=== PATIENT | male | born 1985 ===

== ENCOUNTER 2019-02-08 05:41 | Day surgery (SDC) | payer BC ==
[~2019-02-08 05:41] MED LIST: Buffered Lidocaine 1% SYRIN* 1 ML/SYRINGE INTRADERM ONE
[2019-02-08] MEDS ORDERED: Lactated Ringers 1000 ML Bag* 1,000 ML IV SCH (06:00)
[2019-02-08] MEDS ORDERED: Famotidine IV* 10 MG/ML 2 ML (20 mg) IV ONE (06:00)
[2019-02-08] MEDS ORDERED: Buffered Lidocaine 1% SYRIN* 1 ML/SYRINGE INTRADERM ONE (06:34)
[2019-02-08] MEDS ORDERED: Famotidine IV* 10 MG/ML 2 ML (20 mg) ONE (06:35)
[2019-02-08] MEDS ORDERED: ceFAZolin 2 GM in NS PREMIX(*) 2 GM/100 ML BAG IVPB ONE (06:35)
[2019-02-08] MEDS ORDERED: Lidocaine 2% PF * 5 ML VIAL ONE (07:07)
[2019-02-08] MEDS ORDERED: Ondansetron INJ* 2 MG/ML VIAL ONE (07:07)
[2019-02-08] MEDS ORDERED: Midazolam* 1 MG/ML 5 ML VIAL (5 MG) ONE (07:07)
[2019-02-08] MEDS ORDERED: Ketorolac INJ* 30 MG/ML 1 ML VIAL ONE (07:07)
[2019-02-08] MEDS ORDERED: Propofol* 10 MG/ML 20 ML BTL ONE (07:07)
[2019-02-08] MEDS ORDERED: fentaNYL* 50 MCG/ML 5 ML VIAL (250 MCG VIAL) ONE ×2 (07:07→08:46)
[2019-02-08] MEDS ORDERED: Dexamethasone IV* 4 MG/ML 1 ML (4 MG) ONE (07:07)
[2019-02-08] MEDS ORDERED: Ropivacaine* 2 MG/ML 20 ML VIAL (0.2%) ONE (07:14)
[2019-02-08] MEDS ORDERED: Lidocaine 1% MPF wEPI 200,000* 30 ML SDV ONE (07:14)
[2019-02-08] MEDS ORDERED: Naloxone* 0.4 MG/ML 1 ML VIAL IV PRN (09:08)
[2019-02-08] MEDS ORDERED: Ondansetron INJ* 2 MG/ML VIAL IV PRN (09:08)
[2019-02-08] MEDS ORDERED: fentaNYL* 50 MCG/ML 2 ML VIAL (100 MCG VIAL) IV PRN (09:08)
[2019-02-08] MEDS ORDERED: oxyCODONE/Acetamin 5/325 MG* TAB PO PRN (09:08)
[2019-02-08] MEDS ORDERED: HYDROmorphone INJ1* 1 MG/ML SYRINGE IV PRN (09:08)
[2019-02-08] MEDS ORDERED: oxyCODONE/Acetamin 5/325 MG* TAB ONE (10:34)
[2019-02-08 11:09] VITALS: BP 131/90
--- NOTE | 2019-02-09 04:03 | OP ---
DATE OF OPERATION: 02/08/19 [facility] DATE OF : 83 ATTENDING SURGEON: Shelly Jon MD MANAGER LPN: OLU Ring. An market research assistant was needed for the entirety of the case to help with positioning, retraction, and utilized throughout all portions of the case. ANESTHESIOLOGIST: Dr. Caraballo. ANESTHESIA: General. 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 POST-OP DIAGNOSIS: Right knee chronic grade 3 rupture with lateral meniscus root tearing. OPERATIVE PROCEDURE: 1. Right knee arthroscopy with ACL reconstruction using BTB autograft. 2. Partial lateral meniscectomy. COMPLICATIONS: None. ESTIMATED BLOOD LOSS: Minimal. TOURNIQUET TIME: 21 minutes 250 mmHg. INDICATIONS: Willis Magdaleno is a 33-year-old male who presents with chronic ACL rupture that happened in 2013. He has had persistent instability. He states that he has failed conservative management. He was unable to get it taken care of several years ago due to training, and now he is interested as he is having persistent instability. Risks and benefits were discussed at length included, but not limited to bleeding; infection; damage to nerves, vessels, surrounding structures; wound nonhealing; persistent pain; need for surgery; scaring; stiffness; incomplete relief of symptoms; and risks of anesthesia. DESCRIPTION OF PROCEDURE: The patient was greeted in the preoperative area by the attending surgeon. Correct extremity was marked. Consent was confirmed. The patient was brought back to the operating suite, where he was placed in the supine position on the operating room table. He then underwent general anesthesia with LMA intubation, after which he was appropriately positioned in the bed. A lateral post was positioned and unsterile tourniquet was placed high on the proximal thigh. A navarro bag was placed to knee at 90 degrees. The right leg was then prepped and draped in the usual sterile fashion beginning with chlorhexidine soap, scrub, and alcohol wipe and a final prep with ChloraPrep. After appropriate surgical pause indicating site, side, procedure, administration of antibiotics, the knee was intra-articularly injected with 1% lidocaine with epi. The limb was exsanguinated and tourniquet was inflated at 250 mmHg after which a midline incision over the patellar tendon was then made using 15 blade. Soft tissues were carefully dissected to expose the peritenon, which was identified and layers were preserved for later closure. This was then incised with a deep 15 blade. Soft tissues were carefully dissected to expose the patellar tendon, which was found to be about 36 mm of width. The center 10 mm were then harvested using a 10 blade. The dissection was taken proximally and the bone blocks were harvested to allow for about a 9 x 23 mm bone block proximally and then distally it was about 10 x 30 mm. The graft was then prepared in the back table by the market research assistant while the surgeon continued to close the tendon with 0-Vicryl in an interrupted fashion. The tourniquet was deflated for a total time of 21 minutes. The lateral portal was then made through the capsule. The scope was then brought to the joint. The joint was examined. With the scope positioned in the joint, the anteromedial portal was made in an outside-in fashion using an 18-gauge needle for localization. Shaver was used to debride back the abundant bursa that was present. There was evidence of grade-3 rupture of the ACL. The patellofemoral joint had grade 0 to 1 changes. The medial and lateral gutters were intact. The medial meniscus head was intact. There were grade 0 to 1 changes in the medial femoral condyle and medial plateau. Lateral femoral condyle and lateral plateau had grade 0 to 1 changes with more softening of lateral plateau. There was evidence of previous root tear and it was concerned that the root was detached, however, it still appeared to be scared to the tibial plateau. The remaining stump that was identified and any unable flapping tissue was then debrided back using viral and the biters. After which, attention was directed to the notch. The ACL footprint was then debrided using the shaver and biters. The electrocautery device was used to expose the bony contour. The starting awl was then used to chavez the provisional femoral strut. Bone quality was only okay. After which, attention was directed to the tibial tunnel. A tib-fib guide was set at around 50 degrees and the guidewire was then advanced to the center of the footprint. Once the appropriate position was identified, it was then drilled with a size 10 mm full-bore reamer. The tunnel was then carefully rasped and removed off any soft tissue debris. Care was used to prevent fluid egress. Attention was directed to the femoral tunnel and the knee was then hyperflexed. The Mccain [employer] Nephew straight guide was then placed based on the previous starting awl position and the Beath pin was then placed in the center of the femoral footprint, then overdrilled with a size 9-mm low-profile reamer to a depth of about 25 mm. Patella was removed off any loose debris and then notched. The # 2 Ethibond suture was then placed through the eyelet and passed through the wound. The loop sutures were then passed in anterograde fashion to the tunnel. The graft was brought back to the operating table and then passed under direct and arthroscopic visualization. The graft was then well seated and the bone block was then secured with a size 7 x 20 mm Softsilk screw. The knee was then taken to full extension. Graft was found to not impinge anteriorly. The knee was then cycled approximately 15 times with tension on the graft to make sure it did not move or tear or detach. After which the scope was brought back to the joint and the graft was found to be good position. The knee was then placed in approximately 30 degrees. With posterior drawer, the tibial graft was then secured using a 9 x 25 mm screw with excellent purchase. With tension on the tibial sutures, the graft was then secured with excellent purchase. The knee was taken through range of motion and found to be stable. The scope was brought back to the joint, the graft was checked and found to be in good position. The wounds were then copiously irrigated. Excess bone graft was then placed into the patellar bone defect and then in the tibial defect. This was then oversewn with 0-Vicryl and then the peritenon was closed with 2-0 running Vicryl. The wounds were then irrigated and then closed using 3-0 Monocryl to subcu in running fashion. Sterile dressings were applied. A Cryo/ Cuff and a hinged knee brace locked in extension was applied. He was awoken from anesthesia and transferred to PACU in stable condition. POSTOPERATIVE PLAN: He will be weightbearing as tolerated. He will be in a brace for approximately 4 weeks and discharged on pain medication. DVT prophylaxis was considered, but deferred due to no previous personal or family history. I will see the patient back in 6 to 8 days. [id number]/[facility] #: [id number] PLA[facility]OSPITALChuy
== END 2019-02-08 11:18 | disposition home or self-care (01) ==
LOC: OR 05:41
PROVIDERS: ATTEND Orthopaedic Surgery
DX: S83.511D Sprain of anterior cruciate ligament of right knee, subsequent encounter (principal); S83.281D Other tear of lateral meniscus, current injury, right knee, subsequent encounter; X58.XXXD Exposure to other specified factors, subsequent encounter; Y92.9 Unspecified place or not applicable; K50.90 Crohn's disease, unspecified, without complications; E78.00 Pure hypercholesterolemia, unspecified
CPT/HCPCS: A9270-GY; C1713; J0690; J1100; J1885; J2001; J2250; J2405; J2704; J2795; J3010